=== PATIENT | female | born 1955 | race Caucasian/White ===

== ENCOUNTER → 2017-01-07 | Outpatient (CLI) | payer MEDICARE ==
[~2017-01-07] MED LIST: REGADENOSON 0.4 MG/5 ML SYRINGE IV ONE
--- NOTE | 2017-01-07 13:16 | EST ---
DATE OF SERVICE: 01/07/2017 AGE: 61Y SEX: F HT: 62" WT: 140 lbs. Protocol Braden: Other: Lexiscan Cardiolite Stage: Dur. of Exercise: *Heart Rate Blood Pressure *Rest: 72 Rest: 124/59 * *Max. Achieved: 103 Maximum BP: 124/59 85% PMHR: 136 100% PMHR: 160 *METS: INDICATIONS: Chest pain. MEDICATIONS: Cardizem, levothyroxine, [place], albuterol, Symbicort, Spiriva, Vitamin B. Baseline EKG revealed a normal sinus rhythm without significant ST-T changes. There is nonspecific T wave ST-T abnormality involving the inferior leads. With Lexiscan administration, heart rate changed from 72 to 103 beats per minute and blood pressure was about 124/90 without appreciable change. The patient did not have any significant symptoms. By EKG criteria, this is an unremarkable Lexiscan stress test with minor resting EKG changes. The nuclear scan results, which are more pertinent, will be reported by the radiologist.
--- NOTE | 2017-01-07 14:04 | NM ---
EXAMINATION TYPE: NM stress lexiscan cardiolite DATE OF EXAM: 01/07/2017 12:05 PM COMPARISON: NONE HISTORY: Chest pain TECHNIQUE: After the intravenous administration of 9.9 mCi Tc 99m Sestamibi - Cardiolite resting SPE CT images acquired 45 minutes post injection. The patient received 0.4mg Lexiscan, 27.3 mCi Tc 99m Sestamibi - Stress images obtained [address] injection FINDINGS: Review of stress and rest SPECT images demonstrates no distinct perfusion abnormality. Gated analysi s shows normal wall motion with an estimated left ventricular ejection fraction of 66 %. IMPRESSION: No scintigraphic evidence for reversible ischemia.
== END | disposition home or self-care (01) ==
LOC: RADNMMAIN 08:50
PROVIDERS: ATTEND Family Medicine
DX: R94.39 Abnormal result of other cardiovascular function study (principal); R07.9 Chest pain, unspecified
CPT/HCPCS: 93017; 78452; A9500; J2785

== ENCOUNTER → 2017-02-07 | Outpatient (CLI) | payer MEDICARE ==
--- NOTE | 2017-02-07 14:31 | MM ---
Reason for exam: follow-up at short interval from prior study. Last mammogram was performed 7 months ago. History: Patient is postmenopausal. Family history of breast cancer in sister at age 50. Benign MG stereo VAD BX LT of the left breast, August 06, 2016. Cyst aspiration of the right breast. 3 excisional biopsies of the right breast. Took hormonal contraceptives for 20 years beginning at age 21. Took estrogen for 3 years beginning at age 36. Physical Findings: Nurse did not find any significant physical abnormalities on exam. MG 3D Diag Mammo W/Cad LT CC and MLO view(s) were taken of the left breast. Prior study comparison: July 23, 2016, bilateral MG 3d diag mammo w/cad [facility]. June 30, 2015, bilateral MG screening mammo w CAD. March 29, 2014, bilateral MG screening mammo w CAD. The breast tissue is heterogeneously dense. This may lower the sensitivity of mammography. Finding: There are typically benign round, grouped/clustered calcifications in the middle position of the left breast. Previous mammotome biopsy in the left breast. There is no discrete abnormality. These results were verbally communicated with the patient and result sheet given to the patient on 02/07/17. ASSESSMENT: Benign, BI-RAD 2 RECOMMENDATION: Routine screening mammogram of both breasts in 6 months. Back on schedule for July 2016.
== END | disposition home or self-care (01) ==
LOC: RADMAMWWP 13:41
PROVIDERS: ATTEND Family Medicine
DX: R92.8 Other abnormal and inconclusive findings on diagnostic imaging of breast (principal)
CPT/HCPCS: G0206; G0279

== ENCOUNTER 2017-05-08 08:20 | Day surgery (SDC) | payer MEDICARE ==
[2017-05-03 12:18] VITALS: BMI 26.3
[~2017-05-08 08:20] MED LIST changes: +LACTATED RINGERS 1,000 ML IV SCH; -REGADENOSON 0.4 MG/5 ML SYRINGE IV ONE
[2017-05-08 08:35] VITALS: RESP 16; TEMP 97.7
[2017-05-08] MEDS ORDERED: LIDOCAINE 1% 20 ML VIAL (10MG/ML) FOR IV START INTRADERMA ONE (08:41)
[2017-05-08] MEDS ORDERED: PROPOFOL 10 MG/ML 20 ML VIAL IV ONE (09:17)
[2017-05-08] MEDS ORDERED: LIDOCAINE 1% INJ 10MG/ML (20 ML MDV) ONE (09:17)
--- NOTE | 2017-05-08 09:56 | P.PCN ---
Date of Procedure: 05/08/17 (y) Preoperative Diagnosis: Postoperative Diagnosis: Procedure(s) Performed: Brief history: Patient is a pleasant 61-year-old white female scheduled for an elective upper endoscopy as well as colonoscopy as a part of evaluation of long-standing history of GERD and history of colon polyps. Procedure performed: Esophagogastroduodenoscopy with biopsy Colonoscopy with snare polypectomy Preoperative diagnosis: Anesthesia: MAC Procedure: After informed consent was obtained from the patient was brought into the endoscopy unit and IV sedation was administered by anesthesia under continuous monitoring. Initially upper endoscopy was done. The Olympus GF 160 video endoscope was inserted inserted into the mouth and esophagus intubated without any difficulty and was gradually advanced into the stomach and duodenum and carefully examined. The bulb and second part of the duodenum appeared normal. The scope was then withdrawn into the stomach adequately insufflated with air and upon careful examination the antrum and body, cardia and fundus appeared normal. The scope was then withdrawn into the esophagus. The GE junction was located at 40 cm to the incisors. It appeared regular with no erythema erosions or ulcerations. Rest of the esophagus appeared normal. Patient tolerated the procedure well. At this time the patient continued to remain sedation. Initial digital rectal examination was normal. Olympus CF 160 video colonoscope was then inserted into the rectum and gradually advanced to the cecum without any difficulty. Careful examination was performed as the scope was gradually being withdrawn. The prep was excellent. The cecum, ascending colon, transverse colon, descending colon, appeared normal. In the sigmoid colon there were 5 polyps measuring between 5-6 mm in size all of which were removed by snare polypectomy. There are scattered sigmoid diverticula seen. The rest of the sigmoid colon and rectum appeared normal. Retroflexion was performed in the rectum and no lesions were noted. Patient tolerated the procedure well. Impression: 1. Upper endoscopy revealed mild antral gastritis and a grade B reflux esophagitis 2. Colonoscopy revealed 5 polyps in the sigmoid colon measuring between 5-6 mm in size all of which were removed by snare polypectomy and scattered sigmoid diverticulosis Recommendations: Findings of this examination were discussed with the patient as well as her family. She was advised to follow with the biopsy results. She can have a repeat colonoscopy in 5 years. In regards to her GERD symptoms she will continue with Prilosec 20 mg daily and follow antireflux measures. Implants: Indications for Procedure: Operative Findings: Description of Procedure:
[2017-05-08 10:22] VITALS: BP 97/61; PULSE 71
== END 2017-05-08 10:47 | disposition home or self-care (01) ==
LOC: ORWHC2ENDO 08:20
PROVIDERS: ATTEND Internal Medicine Gastroenterology
DX: Z12.11 Encounter for screening for malignant neoplasm of colon (principal); K29.50 Unspecified chronic gastritis without bleeding; D12.5 Benign neoplasm of sigmoid colon; I25.10 Atherosclerotic heart disease of native coronary artery without angina pectoris; I10 Essential (primary) hypertension; F17.200 Nicotine dependence, unspecified, uncomplicated; E78.5 Hyperlipidemia, unspecified; Z86.718 Personal history of other venous thrombosis and embolism; E07.9 Disorder of thyroid, unspecified; Z79.891 Long term (current) use of opiate analgesic; Z79.51 Long term (current) use of inhaled steroids; Z79.899 Other long term (current) drug therapy; Z88.0 Allergy status to penicillin; Z88.2 Allergy status to sulfonamides
CPT/HCPCS: 88305; 88342; 45385; 43239; J2001; J2704

== ENCOUNTER → 2017-07-19 | Outpatient (CLI) | payer MEDICARE ==
[2017-07-19 12:46] LABS: Basophils # (A) 0.1 k/uL (0-0.2); Basophils % (A) 1 %; CH 32.3; CHCM 31.7; Eosinophils # (A) 0.3 k/uL (0-0.7); Eosinophils % (A) 4 %; HCT 44.4 % (34.0-46.0); HDW 2.21; HGB 14.1 gm/dL (11.4-16.0); Luc # (Auto) 0.19; Luc % (Auto) 2; Lymphocytes # (A) 3.9 k/uL (1.0-4.8); Lymphocytes % (A) 47 %; MCH 32.5 pg (25.0-35.0); MCHC 31.8 g/dL (31.0-37.0); MCV 102.4 fL (80.0-100.0); Macrocytosis Slight; Mean Platelet Volume 6.9; Monocytes # (A) 0.6 k/uL (0-1.0); Monocytes % (A) 8 %; Neutrophils # (A) 3.2 k/uL (1.3-7.7); Neutrophils % (A) 39 %; RBC 4.34 m/uL (3.80-5.40); RDW 14.9 % (11.5-15.5); WBC 8.2 k/uL (3.8-10.6); WBC (Perox) 7.92
[2017-07-19 13:13] LABS: ALT 42 U/L (9-52); AST 23 U/L (14-36); Alkaline Phosphatase 93 U/L (38-126); Anion Gap 5 mmol/L; Blood Urea Nitrogen 12 mg/dL (7-17); Calcium 9.7 mg/dL (8.4-10.2); Carbon Dioxide 29 mmol/L (22-30); Chloride 107 mmol/L (98-107); Cholesterol 159 mg/dL (<200); Glucose 95 mg/dL (74-99); HDL Cholesterol 57 mg/dL (40-60); Non-African American GFR(MDRD) >60 (>60 ml/min/1.73 sqM); Sodium 141 mmol/L (137-145); Total Bilirubin 0.4 mg/dL (0.2-1.3); Total Protein 6.5 g/dL (6.3-8.2)
[2017-07-19 13:19] LABS: Potassium 4.7 mmol/L (3.5-5.1)
== END | disposition home or self-care (01) ==
LOC: LABWHC1 12:09
PROVIDERS: ATTEND Nurse Practitioner Adult Health
DX: Z00.00 Encounter for general adult medical examination without abnormal findings (principal)
CPT/HCPCS: 36415; 80053; 80061; 85025

== ENCOUNTER → 2017-11-05 | Outpatient (CLI) | payer MEDICARE ==
--- NOTE | 2017-11-05 21:02 | CT ---
EXAMINATION TYPE: CT abdomen pelvis wo con DATE OF EXAM: 11/05/2017 COMPARISON: 08/05/2014 HISTORY: 61-year-old female Patient complains of LUQ pain, RLQ pain, and increased frequency of urina tion. CT DLP: 279.9 mGycm. Automated exposure control for dose reduction was used. TECHNIQUE: Contiguous axial scanning of the abdomen and pelvis without IV contrast. Coronal and sagit tobias reconstructions performed. FINDINGS: Heart is normal size without pericardial effusion. Lung bases clear without pleural effusion. The cyst in the posterior right liver lobe is enlarged from 2013 now measuring 1.8 cm versus 1 cm, pr eviously. Otherwise, noncontrast appearance of the liver, adrenal glands, kidneys, spleen, and pancre as show no gross abnormality. Cholecystectomy clips are present. Prominent ingested debris within the stomach. Mild atherosclerotic calcifications within the abdominal aorta and iliac arteries. Focal fusiform dil atation of the infrarenal segment at 1.9 cm without significant ectasia or aneurysm. No dilated small bowel, free fluid, or free air. No mesenteric or retroperitoneal lymphadenopathy. Normal appendix. Moderate stool burden with mild sigmoid diverticulosis but no pericolonic inflammato ry change. Bladder partially distended. Uterus surgically absent. Neither ovary clearly seen and could be obscur ed by adjacent bowel loops or also surgically absent. No abnormal fluid collection in the pelvis. A p rominent 8 mm left external iliac chain lymph node is unchanged, likely chronic postinflammatory. Oth erwise, no pelvic lymphadenopathy or abnormal fluid collection in the pelvis. Bones: There is a transitional lumbosacral segment is noted as a lumbarized S1. Degenerative disc dis ease above and L5-S1. No osseous destructive process. IMPRESSION: 1. No acute inflammatory process identified in the abdomen or pelvis to explain the patient's sympto ms. 2. Right hepatic cyst slightly enlarged in the interval (1.8 cm now versus 1 cm, previously). 3. Mild sigmoid diverticulosis. 4. Moderate stool burden.
== END | disposition home or self-care (01) ==
LOC: RADCTMAIN 16:55
PROVIDERS: ATTEND Nurse Practitioner Adult Health
DX: K57.30 Diverticulosis of large intestine without perforation or abscess without bleeding (principal); K76.89 Other specified diseases of liver; R35.0 Frequency of micturition
CPT/HCPCS: 74176

== ENCOUNTER → 2018-01-24 | Outpatient (CLI) | payer MEDICARE ==
[2018-01-24 08:24] LABS: ALT 31 U/L (9-52); AST 23 U/L (14-36); Alkaline Phosphatase 86 U/L (38-126); Anion Gap 11 mmol/L; Blood Urea Nitrogen 15 mg/dL (7-17); Calcium 9.7 mg/dL (8.4-10.2); Carbon Dioxide 27 mmol/L (22-30); Chloride 108 mmol/L (98-107); Cholesterol 163 mg/dL (<200); Creatine Kinase 62 U/L (30-135); Glucose 103 mg/dL (74-99); HDL Cholesterol 50 mg/dL (40-60); LDL Cholesterol,Calculated 93 mg/dL (0-99); Potassium 4.1 mmol/L (3.5-5.1); Sodium 146 mmol/L (137-145); Total Bilirubin 0.4 mg/dL (0.2-1.3); Total Protein 6.7 g/dL (6.3-8.2); Triglycerides 101 mg/dL (<150)
[2018-01-24 10:34] LABS: T4, Free (Free Thyroxine) 1.52 ng/dL (0.78-2.19)
== END | disposition home or self-care (01) ==
LOC: LABWHC1 07:55
PROVIDERS: ATTEND Nurse Practitioner Adult Health
DX: E03.9 Hypothyroidism, unspecified (principal); E78.5 Hyperlipidemia, unspecified
CPT/HCPCS: 36415; 80053; 80061; 82550; 84439; 84443

== ENCOUNTER → 2018-01-29 | Outpatient (CLI) | payer MEDICARE ==
--- NOTE | 2018-01-30 13:40 | MM ---
Reason for exam: screening (asymptomatic). Last mammogram was performed 1 year ago. History: Patient is postmenopausal. Family history of breast cancer in sister at age 50. Benign MG stereo VAD BX LT of the left breast, August 06, 2016. Cyst aspiration of the right breast. 3 excisional biopsies of the right breast. Took hormonal contraceptives for 20 years beginning at age 21. Took estrogen for 3 years beginning at age 36. Physical Findings: A clinical breast exam by your physician is recommended on an annual basis and results should be correlated with mammographic findings. MG 3D Screening Mammo W/Cad Bilateral CC and MLO view(s) were taken. Prior study comparison: February 07, 2017, left breast MG 3d diag mammo w/cad LT. July 23, 2016, bilateral MG 3d diag mammo w/cad [facility]. The breast tissue is heterogeneously dense. This may lower the sensitivity of mammography. Benign appearing bilateral calcifications. Post surgical change bilaterally. Left breast biopsy marker. ASSESSMENT: Benign, BI-RAD 2 RECOMMENDATION: Routine screening mammogram of both breasts in 1 year.
== END | disposition home or self-care (01) ==
LOC: RADMAMWWP 13:20
PROVIDERS: ATTEND Family Medicine
DX: Z12.31 Encounter for screening mammogram for malignant neoplasm of breast (principal)
CPT/HCPCS: 77063; 77067

== ENCOUNTER → 2018-02-04 | Outpatient (CLI) | payer MEDICARE ==
--- NOTE | 2018-02-05 07:27 | US ---
EXAMINATION TYPE: US thyroid st tissue head/neck DATE OF EXAM: 02/04/2018 COMPARISON: NONE CLINICAL HISTORY: E03.9 HYPOTHYROIDISM. GLAND SIZE: Right Lobe: 4.6 x 3.0 x 1.3 cm Overall Parenchyma: heterogenous Left Lobe: 4.2 x 1.3 x 1.0 cm Overall Parenchyma: heterogeneous Isthmus Thickness: 0.2 cm NODULES RIGHT: # of nodules measured on right: 0 Tiny 3 mm cystic area lower pole. LEFT: # of nodules measured on left: 0 3 mm calcification noted lower pole ISTHMUS: # of nodules measured in the isthmus: 0 Bilateral neck scanned, no evidence of lymphadenopathy. IMPRESSION: Nonspecific thyroid nodularity is discussed.
== END | disposition home or self-care (01) ==
LOC: RADUSWWP 15:39
PROVIDERS: ATTEND Family Medicine
DX: E03.9 Hypothyroidism, unspecified (principal)
CPT/HCPCS: 76536

== ENCOUNTER → 2018-02-19 | Outpatient (CLI) | payer MEDICARE ==
--- NOTE | 2018-02-20 09:17 | CTL ---
EXAMINATION TYPE: CT Low Dose Lung DATE OF EXAM ORDERED: 02/19/2018 HISTORY: . Lung cancer screening CT DLP: [address] CTDI: 2.14 mGy Automated exposure control for dose reduction was used. SCREENING VISIT: Subsequent COMPARISON: 08/15/2017 TECHNIQUE: Low dose computed tomography scan was performed through the chest at 1 mm thick sections a nd reconstructed images in the coronal plane at [address] DIAGNOSTIC QUALITY: Satisfactory FINDINGS: LUNG NODULES: Present, detailed below: Series 5 image 72 there is a peripheral 0.3 cm stable density left anterior upper lung field. Series 5 image 139 there is a peripheral pleural-based density measuring 0.5 cm. This is slightly lar jaya than the comparison of 0.4 cm but within measurement error. Short-term follow-up is recommended. Series 5 image 163 there is a nodular density within the anterior right middle lobe which currently m easures 0.9 x 0.5 cm slightly larger than comparison. PET/CT of this area could be performed. Series 5 image 176 there is a stable linear opacity in the periphery of the right lower lobe measurin g 0.3 cm transverse dimension. LUNGS: COPD: Severity: None Fibrosis: Severity: None Lymph nodes: No enlarged Other findings: None RIGHT PLEURAL SPACE: Effusion: None Calcification: None Thickening: None Pneumothorax: None LEFT PLEURAL SPACE: Effusion: None Calcification: None Thickening: None Pneumothorax: None HEART: Heart Size: Normal Coronary calcification: Mild Pericardial effusion: None OTHER FINDINGS: Upper abdomen: There is a 2.4 cm posterior right upper lobe liver cyst measuring 3 Hounsfield units. Bony thorax: Normal Supraclavicular region: Normal. Normal-appearing 1.0 cm lymph node is in the right axillary region. Other: Ascending thoracic aorta at the main pulmonary artery is 2.9 cm. Main pulmonary artery at the bifurcation is 2.3 cm. IMPRESSION: Subtly enlarging right middle lobe nodule FOLLOW UP CT CHEST RECOMMENDATION: PET CT can be performed. CT LUNG RAD: Lung-Rad 4A Suspicious
== END | disposition home or self-care (01) ==
LOC: RADCTMAIN 16:31
PROVIDERS: ATTEND Family Medicine
DX: Z12.2 Encounter for screening for malignant neoplasm of respiratory organs (principal); R91.8 Other nonspecific abnormal finding of lung field; Z87.891 Personal history of nicotine dependence

== ENCOUNTER → 2018-03-15 | Outpatient (CLI) | payer MEDICARE ==
--- NOTE | 2018-03-15 13:09 | PE ---
EXAMINATION TYPE: PET CT fusion skull to thigh DATE OF EXAM: 03/15/2018 COMPARISON: Low dose lung screening CT February 19, 2018 and older chest CTs back through 2010. CT abdome n and pelvis November 05, 2017 and older study August 05, 2014 HISTORY: Abnormal CT, solitary pulmonary nodule TECHNIQUE: Following the intravenous administration of 13.4 mCi of F-18 FDG, whole body images are p erformed from the skull base to the midthigh. Images are reviewed on the computer in the coronal, ax ial, and sagittal planes. Reconstructed rotating images are created on independent workstation and r eviewed on the computer. A noncontrast CT is performed in conjunction with the PET scan. SCAN: Initial Scan FINDINGS: SKULL BASE AND NECK: No areas of suspicious hypermetabolic uptake are present. There is mild increas ed uptake right lower neck muscle adjacent to thyroid gland near image 48 correlate for muscular infl ammation. CHEST, MEDIASTINUM, AND HILAR REGION: There is redemonstration of largest nodule right middle lobe an teriorly axial image 95 measuring 6 x 4 mm current study without abnormal hypermetabolic uptake. Line ar scarring lateral to this is redemonstrated. This nodule has been present in retrospect back to May study without significant change in size. Finding is thus postinflammatory. Some isis on artifact degradation is present. Scattered tiny nodules on low-dose lung screening CT are less wel l seen on current study. There are no suspicious hypermetabolic greater than 5 mm nodules identified. No suspicious areas of hypermetabolic uptake are seen. ABDOMEN AND PELVIS: Normal excretion in kidneys and bladder is present. There is no suspicious hyperm etabolic uptake on current study. OSSEOUS STRUCTURES: No suspicious hypermetabolic uptake is present. OTHER CT: Some coronary artery calcification RCA distribution is seen which is noted marker for coron thor artery disease. There is stable 1.8 cm rounded low dense lesion posterior right hepatic lobe axial image 124 favoring simple cyst. Cholecystectomy clips are redemonstrated. There is mild calcified plaque of the abdominal aorta extending into pelvic branch vessels. There are some diverticula in the colon most prominent in the sigmoid colon. There is no CT evidence for acute diverticulitis. There is disc space narrowing at lumbosacral junction with vacuum disc phenomenon. IMPRESSION: No suspicious hypermetabolic uptake is seen to suggest malignancy. Recommend annual low-d ose lung screening CT in January 2019.
== END | disposition home or self-care (01) ==
LOC: RADPETMAIN 07:55
PROVIDERS: ATTEND Nurse Practitioner Adult Health
DX: R91.8 Other nonspecific abnormal finding of lung field (principal)
CPT/HCPCS: 78815; A9552

== ENCOUNTER → 2018-04-28 | Outpatient (CLI) | payer MEDICARE ==
--- NOTE | 2018-04-28 16:17 | CT ---
EXAMINATION TYPE: CT abdomen pelvis wo con DATE OF EXAM: 04/28/2018 COMPARISON: PET/CT 03/15/2018 HISTORY: 62-year-old female Bilateral inguinal pain x5 days. CT DLP: 312.8 mGycm. Automated exposure control for dose reduction was used. TECHNIQUE: Contiguous axial scanning of the abdomen and pelvis without IV contrast. Coronal and sagit tobias reconstructions performed. FINDINGS: Heart is normal size without pericardial effusion. Visualized lung bases clear without pleural effusi on. Stable 2.1 cm round hypodense lesion posterior right liver lobe likely cyst. We note lack of metaboli c activity on the patient's PET/CT. Additional subcentimeter hypodensity left liver lobe is too small for accurate CT characterization, likely additional cysts. Cholecystectomy clips are present. Noncontrast appearance of the adrenal glands, kidneys, spleen, and pancreas show no gross abnormality . No dilated small bowel, free fluid, or free air. Mild atherosclerotic calcifications throughout the a bdominal aorta and iliac arteries without aneurysm. No mesenteric or retroperitoneal lymphadenopathy identified For noncontrast technique. Normal appendix. Mild to moderate stool burden. Sigmoid diverticulosis. No pericolonic inflammatory c hange. Bladder not distended. No abnormal fluid collection in the pelvis or pelvic lymphadenopathy seen. No inguinal or femoral canal hernia is identified. Uterus not clearly identified, either obscured due to clustered bowel or surgically absent. The latter is favored. No abnormal fluid collection in the pel vis or pelvic lymphadenopathy. Bones: Mild degenerative changes at the hips degenerative disc disease L4-L5 with sacralized L5 segme nt. IMPRESSION: Sigmoid diverticulosis. No evidence for acute diverticulitis or other acute inflammatory process in t he abdomen or pelvis to explain the patient's symptoms.
== END | disposition home or self-care (01) ==
LOC: RADCTMAIN 15:44
PROVIDERS: ATTEND Nurse Practitioner Adult Health
DX: K57.30 Diverticulosis of large intestine without perforation or abscess without bleeding (principal)
CPT/HCPCS: 74176

== ENCOUNTER → 2018-07-26 | Outpatient (CLI) | payer MEDICARE ==
[2018-07-26 12:03] LABS: Basophils # (A) 0.1 k/uL (0-0.2); Basophils % (A) 1 %; Eosinophils # (A) 0.3 k/uL (0-0.7); Eosinophils % (A) 2 %; HCT 44.6 % (34.0-46.0); HGB 14.2 gm/dL (11.4-16.0); Lymphocytes # (A) 3.7 k/uL (1.0-4.8); Lymphocytes % (A) 34 %; MCH 31.7 pg (25.0-35.0); MCHC 31.8 g/dL (31.0-37.0); MCV 99.4 fL (80.0-100.0); Mean Platelet Volume 7.1; Monocytes # (A) 0.6 k/uL (0-1.0); Monocytes % (A) 5 %; Neutrophils # (A) 5.9 k/uL (1.3-7.7); Neutrophils % (A) 55 %; Platelet Count 413 k/uL (150-450); RBC 4.49 m/uL (3.80-5.40); RDW 13.5 % (11.5-15.5); WBC 10.7 k/uL (3.8-10.6)
[2018-07-26 17:01] LABS: Albumin 4.4 g/dL (3.80-4.90); Albumin/Globulin Ratio 2.1 (1.20-2.10); Anion Gap 5.9 mmol/L (4.00-12.00); Calcium 9.7 mg/dL (8.7-10.3); Carbon Dioxide 28.1 mmol/L (21.6-31.8); Globulin 2.1 g/dL (2.1-3.7); Potassium 4.5 mmol/L (3.5-5.5); Total Bilirubin 0.4 mg/dL (0.2-1.2); Total Protein 6.5 g/dL (6.2-8.2)
[2018-07-26 17:09] LABS: T4, Free (Free Thyroxine) 1.3 ng/dL (0.80-1.80)
== END ==
LOC: LABWHC1 10:44
PROVIDERS: ATTEND Nurse Practitioner Adult Health
DX: I10 Essential (primary) hypertension (principal); E03.9 Hypothyroidism, unspecified; E78.5 Hyperlipidemia, unspecified
CPT/HCPCS: 36415; 80053; 80061; 82550; 84439; 84443; 85025

== ENCOUNTER → 2019-03-06 | Outpatient (CLI) | payer MEDICARE ==
[2019-03-06 08:27] LABS: Basophils # (A) 0.1 k/uL (0-0.2); Basophils % (A) 1 %; Eosinophils # (A) 0.2 k/uL (0-0.7); Eosinophils % (A) 2 %; HCT 43.7 % (34.0-46.0); HGB 13.5 gm/dL (11.4-16.0); Lymphocytes # (A) 2.9 k/uL (1.0-4.8); Lymphocytes % (A) 34 %; MCH 29.8 pg (25.0-35.0); MCV 96.4 fL (80.0-100.0); Mean Platelet Volume 7.3; Monocytes # (A) 0.6 k/uL (0-1.0); Monocytes % (A) 7 %; Neutrophils # (A) 4.7 k/uL (1.3-7.7); Neutrophils % (A) 54 %; Platelet Count 361 k/uL (150-450); RBC 4.54 m/uL (3.80-5.40); RDW 14.2 % (11.5-15.5); WBC 8.7 k/uL (3.8-10.6)
[2019-03-06 15:38] LABS: LDL Cholesterol,Calculated 84.2 mg/dL (0.0-131.0); VLDL Calculation 14.8 mg/dL (5.00-40.00)
[2019-03-06 15:39] LABS: African American GFR (CKD) 107.6 (60.0-200.0); Albumin 4.2 g/dL (3.80-4.90); Albumin/Globulin Ratio 2.1 (1.60-3.17); Anion Gap 2.1 mmol/L (4.00-12.00); BUN/Creat Ratio 24.29 Ratio (12.00-20.00); Calcium 9.5 mg/dL (8.7-10.3); Carbon Dioxide 27.9 mmol/L (21.6-31.8); Potassium 4.6 mmol/L (3.5-5.5); Total Bilirubin 0.2 mg/dL (0.2-1.2); Total Protein 6.2 g/dL (6.2-8.2)
[2019-03-06 15:45] LABS: T4, Free (Free Thyroxine) 1.5 ng/dL (0.80-1.80)
== END ==
LOC: LABWHC1 07:36
PROVIDERS: ATTEND Nurse Practitioner Adult Health
DX: E03.9 Hypothyroidism, unspecified (principal); E78.5 Hyperlipidemia, unspecified
CPT/HCPCS: 36415; 80053; 80061; 82550; 84439; 84443; 85025

== ENCOUNTER → 2019-03-13 | Outpatient (CLI) | payer MEDICARE ==
--- NOTE | 2019-03-13 15:07 | CT ---
EXAMINATION TYPE: CT chest wo con DATE OF EXAM: 03/13/2019 COMPARISON: Lung CT February 19, [address] March 15, 2018. And older CTs HISTORY: f/u nodules CT DLP: 523 mGycm. Automated Exposure Control for Dose Reduction was Utilized. TECHNIQUE: CT scan of the thorax is performed without IV contrast. FINDINGS: LUNGS: Scattered small nodules redemonstrated. For reference one of larger lesions is a 5 x 4 mm grou ndglass nodule anterior right mid lung axial image 33. For reference is a stable 5 x 4 mm subpleural nodule superior right lower lobe axial image 23. No definitive new greater than 4 mm nodules or jonathan s. MEDIASTINUM: Lack of IV contrast is noted to limit evaluation for mediastinal and especially hilar ad enopathy. There are no definitive greater than 1 cm hilar or mediastinal lymph nodes. No cardiomega ly or pericardial effusion is seen. OTHER: Cholecystectomy clips are present. IMPRESSION: Stable scattered nodules presumed postinflammatory. No new or enlarging nodules evident.
== END | disposition home or self-care (01) ==
LOC: RADCTMAIN 14:31
PROVIDERS: ATTEND Family Medicine
DX: R91.8 Other nonspecific abnormal finding of lung field (principal)
CPT/HCPCS: 71250

== ENCOUNTER → 2019-03-24 | Outpatient (CLI) | payer MEDICARE ==
--- NOTE | 2019-03-26 08:53 | MM ---
Reason for exam: screening (asymptomatic). Last mammogram was performed 1 year and 2 months ago. History: Patient is postmenopausal. Family history of breast cancer in sister at age 50. Benign MG stereo VAD BX LT of the left breast, August 06, 2016. Cyst aspiration of the right breast. 3 excisional biopsies of the right breast. Took hormonal contraceptives for 20 years beginning at age 21. Took estrogen for 3 years beginning at age 36. Physical Findings: A clinical breast exam by your physician is recommended on an annual basis and results should be correlated with mammographic findings. MG 3D Screening Mammo W/Cad Bilateral CC and MLO view(s) were taken. Prior study comparison: January 29, 2018, bilateral MG 3d screening mammo w/cad. February 07, 2017, left breast MG 3d diag mammo w/cad LT. The breast tissue is heterogeneously dense. This may lower the sensitivity of mammography. Stable benign calcifications. There is no discrete abnormality. No significant changes when compared with prior studies. ASSESSMENT: Benign, BI-RAD 2 RECOMMENDATION: Routine screening mammogram of both breasts in 1 year.
== END | disposition home or self-care (01) ==
LOC: RADMAMWWP 14:36
PROVIDERS: ATTEND Family Medicine
DX: Z12.31 Encounter for screening mammogram for malignant neoplasm of breast (principal)
CPT/HCPCS: 77063; 77067

== ENCOUNTER → 2019-08-31 | Outpatient (CLI) | payer MEDICARE ==
[2019-08-31 20:12] LABS: T4, Free (Free Thyroxine) 1.5 ng/dL (0.80-1.80)
[2019-09-01 14:53] LABS: Estrogens Total 109 pg/mL
== END | disposition home or self-care (01) ==
LOC: LABWHC1 13:12
PROVIDERS: ATTEND Family Medicine
DX: E03.9 Hypothyroidism, unspecified (principal); E89.41 Symptomatic postprocedural ovarian failure
CPT/HCPCS: 36415; 82040; 82672; 84144; 84270; 84403; 84439; 84443

== ENCOUNTER → 2020-03-14 | Outpatient (CLI) | payer MEDICARE ==
--- NOTE | 2020-03-14 15:18 | CT ---
EXAMINATION TYPE: CT chest wo con DATE OF EXAM: 03/14/2020 COMPARISON: CT chest 03/13/2019 HISTORY: Solitary lung nodule. CT DLP: 195.7 mGycm. Automated Exposure Control for Dose Reduction was Utilized. TECHNIQUE: CT scan of the thorax is performed without IV contrast. FINDINGS: Lack of intravenous contrast could compromise sensitivity. LUNGS: The lungs are remarkable for emphysematous change as on prior. No suspicious lung nodule is id entified. There is no pleural effusion or pneumothorax seen. The tracheobronchial tree is patent. MEDIASTINUM: Lack of IV contrast is noted to limit evaluation for mediastinal and especially hilar ad enopathy. There are no definitive greater than 1 cm hilar or mediastinal lymph nodes. No cardiomega ly or pericardial effusion is seen. There are coronary artery calcifications present. OTHER: Low dense foci within the liver are stable and likely represent cysts. Patient is post cholecy stectomy. IMPRESSION: Benign chest CT. Emphysema.
== END | disposition home or self-care (01) ==
LOC: RADCTMAIN 14:17
PROVIDERS: ATTEND Family Medicine
DX: J43.9 Emphysema, unspecified (principal)
CPT/HCPCS: 71250

== ENCOUNTER → 2020-08-19 | Outpatient (CLI) | payer MEDICARE | END | disposition home or self-care (01) | LOC: RADUSWWP 11:56 | PROVIDERS: ATTEND Family Medicine | DX: I73.9 Peripheral vascular disease, unspecified (principal) | CPT/HCPCS: 93922 ==

== ENCOUNTER → 2020-11-25 | Outpatient (CLI) | payer MEDICARE | END | disposition home or self-care (01) | LOC: RADMAMWWP 09:53 | PROVIDERS: ATTEND Family Medicine | DX: Z12.31 Encounter for screening mammogram for malignant neoplasm of breast (principal) | CPT/HCPCS: 77063; 77067 ==

== ENCOUNTER → 2021-02-27 | Outpatient (CLI) | payer MEDICARE ==
--- NOTE | 2021-02-27 16:19 | US ---
EXAMINATION TYPE: US thyroid st tissue head/neck DATE OF EXAM: 02/27/2021 COMPARISON: 02/04/2018 CLINICAL HISTORY: E04.1 SINGLE THYROID NODULE. GLAND SIZE: Right Lobe: 4.3 x 1.4 x 1.2 cm Overall Parenchyma: heterogenous Left Lobe: 3.4 x 1.3 x 1.0 cm Overall Parenchyma: heterogeneous Isthmus Thickness: 0.1 cm NODULES RIGHT: # of nodules measured on right: 0 LEFT: # of nodules measured on left: 1 1. 0.3 X 0.2 x 0.3 cm, echogenic calcified, nodule, which is wider than tall, with smooth margins. Prior size: no previous ISTHMUS: # of nodules measured in the isthmus: 0 Bilateral neck scanned, no evidence of lymphadenopathy. IMPRESSION: 1. No right thyroid nodules. 2. Echogenic calcified nodule measuring 3 mm in the left lateral thyroid lobe. 3. The thyroid parenchyma is mildly heterogeneous diffusely. 2017 ACR TI-RADS LEVEL: 2 *Highest TI-RADS level nodule reported
== END | disposition home or self-care (01) ==
LOC: RADUSWWP 12:19
PROVIDERS: ATTEND Family Medicine
DX: E04.1 Nontoxic single thyroid nodule (principal)
CPT/HCPCS: 76536

== ENCOUNTER → 2021-06-05 | Outpatient (CLI) | payer MEDICARE ==
--- NOTE | 2021-06-05 16:20 | CT ---
EXAMINATION TYPE: CT chest wo con DATE OF EXAM: 06/05/2021 COMPARISON: Most recent chest CT March 14, 2020 and older studies HISTORY: f/u nodules CT DLP: 254.3 mGycm. Automated Exposure Control for Dose Reduction was Utilized. TECHNIQUE: CT scan of the thorax is performed without IV contrast. FINDINGS: LUNGS: Scattered small nodules redemonstrated. For reference one of larger lesions is a 5 x 4 mm grou ndglass nodule anterior right mid lung axial image 33. This is stable in size but more faint from mos t recent older studies. This localizes along the minor fissure and is presumed benign. For reference is a stable 5 x 4 mm subpleural nodule superior right lower lobe axial image 27. This is unchanged fr om last 2 CTs. No definitive new greater than 4 mm nodules or masses. Mild bibasilar linear scarring redemonstrated. No pleural effusion or pneumothorax seen bilaterally. MEDIASTINUM: Lack of IV contrast is noted to limit evaluation for mediastinal and especially hilar ad enopathy. There are no definitive greater than 1 cm hilar or mediastinal lymph nodes. No cardiomega ly or pericardial effusion is seen. Coronary artery calcification is present. OTHER: Cholecystectomy clips are present. Stable 2.9 cm thin-walled cyst posterior right hepatic lobe axial image 51. Subcentimeter lesion left hepatic lobe anteriorly image 50 also stable. IMPRESSION: Stable scattered nodules presumed benign. No new or enlarging nodules evident. No further follow-up necessary as documented 2 year stability noted.
== END | disposition home or self-care (01) ==
LOC: RADCTMAIN 15:51
PROVIDERS: ATTEND Family Medicine
DX: R91.8 Other nonspecific abnormal finding of lung field (principal)
CPT/HCPCS: 71250

== ENCOUNTER → 2021-08-30 | Outpatient (CLI) | payer MEDICARE ==
[2021-08-30 18:16] LABS: Basophils # (A) 0.08 X 10*3/uL (0.00-0.10); Basophils % (A) 0.8 %; Eosinophils # (A) 0 X 10*3/uL (0.04-0.35); Eosinophils % (A) 0 %; HCT 42.3 % (37.2-46.3); HGB 13.8 g/dL (12.0-15.0); Lymphocytes # (A) 2.66 X 10*3/uL (0.90-5.00); Lymphocytes % (A) 27.8 %; MCH 32.2 pg (27.0-32.0); MCHC 32.6 g/dL (32.0-37.0); MCV 98.6 fL (80.0-97.0); Mean Platelet Volume 9.9 fL (9.5-12.2); Monocytes % (A) 7.3 %; Neutrophils % (A) 63.9 %; Platelet Count 389 X 10*3/uL (140-440); RBC 4.29 X 10*6/uL (4.10-5.20); RDW 14.5 % (11.5-14.5); WBC 9.56 X 10*3/uL (4.50-10.00)
[2021-08-30 19:19] LABS: % Iron Saturation 25.56 (12.00-45.00); ALT 16 U/L (8-44); AST 17 U/L (13-35); African American GFR (CKD) 93.7 (60.0-200.0); Albumin 4.4 g/dL (3.8-4.9); Albumin/Globulin Ratio 1.84 (1.60-3.17); Alkaline Phosphatase 88 U/L (41-126); BUN/Creat Ratio 16.11 Ratio (12.00-20.00); Blood Urea Nitrogen 12.5 mg/dL (9.0-27.0); Calcium 9.6 mg/dL (8.7-10.3); Carbon Dioxide 25.7 mmol/L (20.0-27.5); Chloride 105 mmol/L (96-109); Chol/HDL Ratio 3.06 Ratio; Creatine Kinase 69 U/L (26-186); Ferritin 88.1 ng/mL (10.0-291.0); Globulin 2.4 g/dL (1.6-3.3); Glucose 100 mg/dL (70-110); Iron 97 ug/dL (50-170); LDL Cholesterol,Calculated 93.9 mg/dL (0.0-131.0); Non-African American GFR(CKD) 80.8 (60.0-200.0); Potassium 4.9 mmol/L (3.5-5.5); Sodium 142 mmol/L (135-145); Total Iron Binding Capacity 378 ug/dL (228-460); Total Protein 6.8 g/dL (6.2-8.2); VLDL Calculation 15.78 mg/dL (5.00-40.00)
== END | disposition home or self-care (01) ==
LOC: LABWHC1 10:43
PROVIDERS: ATTEND Nurse Practitioner Adult Health
DX: E78.5 Hyperlipidemia, unspecified (principal); E03.9 Hypothyroidism, unspecified; R53.83 Other fatigue
CPT/HCPCS: 36415; 80053; 80061; 82550; 82607; 82728; 82746; 83036; 83540; 83550; 84439; 84443; 84481; 85025; 86376; 86800

== ENCOUNTER → 2022-01-12 | Outpatient (CLI) | payer MEDICARE ==
--- NOTE | 2022-01-16 12:52 | MM ---
Reason for Exam: Hx of breast augmentation, asymptomatic. Last mammogram was performed 1 year(s) and 2 month(s) ago. Patient History: Menarche at age 16. First Full-Term at age 20. Left ovary removed at age 42. Right ovary removed at age 42. Hysterectomy at age 42. Postmenopausal. Estrogen for 3 years from age 36 until age 39. Hormonal Contraceptives for 20 years from age 21 until age 41. Cyst Aspiration on the Right side. Excisional Biopsy on the Right side. Excisional Biopsy on the Right side. Excisional Biopsy on the Right side. 08/06/2016, Benign Core Biopsy on the left side. Sister had breast cancer, age 50. Film Views: Bilateral CC views were taken. Bilateral MLO views were taken. Prior Study Comparison: 01/29/2018 Bilateral Screening Mammogram, [facility]. 03/24/2019 Bilateral Screening Mammogram, [facility]. 11/25/2020 Bilateral Screening Mammogram, [facility]. Tissue Density: The breast tissue is heterogeneously dense. This may lower the sensitivity of mammography. Findings: Analyzed By CAD. No significant changes when compared with prior studies. Previous mammotome biopsy in the left breast. Chronic nodularity in the right anterior breast on CC view. Benign oil cyst calcifications bilaterally. Overall Assessment: Benign, BI-RAD 2 Management: Screening Mammogram of both breasts in 1 year.
== END | disposition home or self-care (01) ==
LOC: RADMAMWWP 10:17
PROVIDERS: ATTEND Family Medicine
DX: Z12.31 Encounter for screening mammogram for malignant neoplasm of breast (principal)
CPT/HCPCS: 77063; 77067

== ENCOUNTER → 2022-06-29 | Outpatient (CLI) | payer MEDICARE ==
--- NOTE | 2022-06-29 10:42 | CTL ---
EXAMINATION TYPE: CT Low Dose Lung DATE OF EXAM ORDERED: 06/29/2022 HISTORY: History of tobacco use. CT DLP: 76.[address] CTDI: 2.5 mGy Automated exposure control for dose reduction was used. SCREENING VISIT: Follow-up COMPARISON: 02/19/2018, PET/CT 03/15/2018, CT chest 06/05/2021. CT 02/19/2018 TECHNIQUE: Low dose computed tomography scan was performed through the chest at 1 mm thick sections a nd reconstructed images in multiple planes at 1 mm and [address] DIAGNOSTIC QUALITY: Satisfactory FINDINGS: LUNG NODULES: Right lower lobe posterior peripheral superior segment nodule now measuring 7 mm, similar to 8. Image 122 Right middle lobe intrafissural lymph node along the minor fissure. Left lower lobe peripheral 3 mm nodule, similar to 02/19/2018. Image 152 Left upper lobe opacified pulmonary nodule. LUNGS: COPD: Severity: Mild centrilobular emphysema changes. Fibrosis: Severity: None Lymph nodes: None Other findings: None RIGHT PLEURAL SPACE: Effusion: None Calcification: None Thickening: None Pneumothorax: None LEFT PLEURAL SPACE: Effusion: None Calcification: None Thickening: None Pneumothorax: None HEART: Heart Size: Normal Coronary Calcification: Mild coronary artery atherosclerosis. Pericardial Effusion: None OTHER FINDINGS: Upper abdomen: None Bony thorax: Mild multilevel disc degeneration changes seen throughout the spine. Supraclavicular region: None Other: Hepatic cyst. IMPRESSION: Stable pulmonary nodules dating back to at least 2018. CT LUNG RAD AND CT CHEST RECOMMENDATION: Lung-Rad 2 Benign Appearance or Behavior: No additional foll ow-up of these nodules as they have been stable since 2018. S Modifier (other clinically significant findings): None
== END | disposition home or self-care (01) ==
LOC: RADCTMAIN 09:45
PROVIDERS: ATTEND Family Medicine
DX: R91.8 Other nonspecific abnormal finding of lung field (principal); Z87.891 Personal history of nicotine dependence
CPT/HCPCS: 71271

== ENCOUNTER → 2022-11-30 | Outpatient (CLI) | payer MEDICARE ==
--- NOTE | 2022-11-30 22:57 | XR ---
EXAMINATION TYPE: XR chest 2V DATE OF EXAM: 11/30/2022 COMPARISON: Chest CT June 05, 2021 HISTORY: COPD. TECHNIQUE: Frontal and lateral views of the chest are obtained. FINDINGS: Mild to moderate underlying emphysematous changes are redemonstrated. There is no suspicio us focal air space opacity, pleural effusion, or pneumothorax seen. The cardiac silhouette size is s table and within normal limits. Partial visualization of anterior fusion plate in the cervical spine is noted.. IMPRESSION: Mild to moderate underlying emphysematous change without acute pulmonary process.
--- NOTE | 2022-11-30 22:59 | XR ---
EXAMINATION TYPE: XR lumbar spine 2 or 3V DATE OF EXAM: 11/30/2022 CLINICAL HISTORY: Low back pain for years. TECHNIQUE: Frontal and lateral images of the lumbar spine are obtained. COMPARISON: CT abdomen and pelvis 2017 FINDINGS: There are 5 lumbar type vertebral bodies redemonstrated. The lumbar spine shows stable an d satisfactory alignment . Vertebral body heights remain within normal limits. Mild to moderate disc space narrowing L3-L4 level. Mild disc space narrowing L5-S1 level. Mild overlying arteriovascular ca lcification. IMPRESSION: As above.
== END | disposition home or self-care (01) ==
LOC: RADXRMAIN 17:20
PROVIDERS: ATTEND Internal Medicine Hematology & Oncology
DX: J43.8 Other emphysema (principal); M51.27 Other intervertebral disc displacement, lumbosacral region; D72.820 Lymphocytosis (symptomatic); Z71.3 Dietary counseling and surveillance
CPT/HCPCS: 71046; 72100

== ENCOUNTER → 2023-01-14 | Outpatient (CLI) | payer MEDICARE ==
--- NOTE | 2023-01-15 08:21 | MM ---
Reason for Exam: Screening (asymptomatic). Last screening mammogram was performed 12 month(s) ago. Patient History: Menarche at age 16. First Full-Term at age 20. Left ovary removed at age 42. Right ovary removed at age 42. Hysterectomy at age 42. Postmenopausal. Estrogen for 3 years from age 36 until age 39. Hormonal Contraceptives for 20 years from age 21 until age 41. Cyst Aspiration on the Right side. Excisional Biopsy on the Right side. Excisional Biopsy on the Right side. Excisional Biopsy on the Right side. 08/06/2016, Benign Core Biopsy on the left side. Sister had breast cancer, age 50. Risk Values: Debbie 5 year model risk: 4.3%. NCI Lifetime model risk: 14.7%. Prior Study Comparison: 03/24/2019 Bilateral Screening Mammogram, [facility]. 11/25/2020 Bilateral Screening Mammogram, [facility]. 01/12/2022 Bilateral MG 3D screening mammo w/cad, [facility]. Tissue Density: The breast tissue is heterogeneously dense. This may lower the sensitivity of mammography. Findings: Analyzed By CAD. The pattern appears symmetrical and stable. Benign calcifications are present bilaterally. A core marker is within the left breast. No suspicious groups of microcalcifications, spiculated or lobular masses, architectural distortion or other secondary signs of malignancy are mammographically apparent. Overall Assessment: Benign, BI-RAD 2 Management: Screening Mammogram of both breasts in 1 year. A negative mammogram report should not preclude additional follow up of suspicious palpable abnormalities. Patient should continue monthly self breast exam. A clinical breast exam by your physician is recommended on an annual basis and results should be correlated with mammographic findings. Electronically signed and approved by: Robe Fofana D.O. Radiologis
== END | disposition home or self-care (01) ==
LOC: RADMAMWWP 09:47
PROVIDERS: ATTEND Family Medicine
DX: Z12.31 Encounter for screening mammogram for malignant neoplasm of breast (principal); Z78.0 Asymptomatic menopausal state; Z80.3 Family history of malignant neoplasm of breast
CPT/HCPCS: 77063; 77067

== ENCOUNTER → 2023-07-26 | Outpatient (CLI) | payer MEDICARE ==
[2023-07-26 16:40] LABS: ALT 17 U/L (8-44); AST 15 U/L (13-35); Albumin 4.5 g/dL (3.8-4.9); Alkaline Phosphatase 95 U/L (41-126); BUN/Creat Ratio 17.57 Ratio (12.00-20.00); Blood Urea Nitrogen 12.3 mg/dL (9.0-27.0); Calcium 10.1 mg/dL (8.7-10.3); Chloride 103 mmol/L (96-109); Globulin 2.5 g/dL (1.6-3.3); Glucose 92 mg/dL (70-110); Potassium 4.2 mmol/L (3.5-5.5); Sodium 141 mmol/L (135-145); Total Bilirubin 0.2 mg/dL (0.3-1.2)
== END | disposition home or self-care (01) ==
LOC: LABWHC1 12:36
PROVIDERS: ATTEND Internal Medicine Endocrinology, Diabetes & Metabolism
DX: M81.0 Age-related osteoporosis without current pathological fracture (principal)
CPT/HCPCS: 36415; 80053; 82306; 83970

== ENCOUNTER → 2023-09-20 | Outpatient (CLI) | payer MEDICARE ==
--- NOTE | 2023-09-20 19:42 | CTL ---
EXAMINATION TYPE: CT Low Dose Lung DATE OF EXAM ORDERED: 09/20/2023 COMPARISON: 06/29/2022 HISTORY: . Low Dose CT Lung Screening CT DLP: 70.[address] CTDI: 2.1 mGy IV CONTRAST USED: None. SCREENING VISIT: Follow-up TECHNIQUE: Low dose computed tomography scan was performed through the chest at 1 millimeter thick se ctions and reconstructed images in the coronal plane at [address] DIAGNOSTIC QUALITY: Satisfactory FINDINGS: LUNG NODULES: Pleural-based Right lower lobe posterior peripheral superior segment nodule now measur ing 7 mm, change from prior study seen best on image 120. Right middle lobe intrafissural lymph node along the minor fissure unchanged at 3 mm. Stable subpleural nodular density left upper lobe image 15 7 measuring 3.5 mm. No new nodules identified. LUNGS: COPD: Severity: Mild Fibrosis: Severity:None Lymph nodes: None Other findings: None RIGHT PLEURAL SPACE: Effusion: None Calcification: None Thickening: None Pneumothorax: None LEFT PLEURAL SPACE: Effusion: None Calcification: None Thickening: None Pneumothorax: None HEART: Heart Size: Mildly enlarged Coronary calcification: Mild Pericardial effusion: None OTHER FINDINGS: Upper abdomen: Hepatic cyst redemonstrated. Bony thorax: Degenerative changes Supraclavicular region: No significant abnormalityOther: No significant abnormalityI IMPRESSION: Benign FOLLOW UP CT CHEST RECOMMENDATION: Follow-up screening in one year CT LUNG RAD: LUNG RAD CATEGORY 2 benign appearance and/or behavior.
== END | disposition home or self-care (01) ==
LOC: RADCTMAIN 17:12
PROVIDERS: ATTEND Family Medicine
DX: Z12.2 Encounter for screening for malignant neoplasm of respiratory organs (principal); F17.210 Nicotine dependence, cigarettes, uncomplicated
CPT/HCPCS: 71271

== ENCOUNTER → 2023-10-04 | Outpatient (CLI) | payer MEDICARE ==
--- NOTE | 2023-10-04 12:36 | BD ---
EXAMINATION TYPE: Axial Bone Density DATE OF EXAM: 10/04/2023 CLINICAL HISTORY: 67 years old Female. ICD-10 CODE: M81.0 AGE-RELATED OSTEOPOROSIS W/O CURRENT PATHO LOGY Height: 61 Weight: 149 FRAX RISK QUESTIONS: Glucocorticoids (More than 3mos): no (Ex: prednisone, prednisolone, methylprednisolone, dexamethasone, and hydrocortisone). History of Fracture in Adulthood: yes Secondary Osteoporosis: yes 3. Menopause before 45: yes Current Tobacco Use: yes RISK FACTORS HISTORY OF: Surgery to Spine/Hip(right/left)/Wrist (right/left): no MEDICATIONS: Thyroid Medications: yes Which medication: Levothyroxine How Lon+ years EXAM MEASUREMENTS: Bone mineral densitometry was performed using the [employer] System. Bone mineral density as measured about the Lumbar spine is: ----- L1-L4(G/cm2): 0.922 T Score Values are as follows: ----- L1: -2.7 ----- L2: -2.8 ----- L3: -2.7 ----- L4: -1.0 ----- L1-L4: -2.2 Z Score Values are as follows: ----- L1: -1.2 ----- L2: -1.2 ----- L3: -1.2 ----- L4: 0.5 ----- L1-L4: -0.6 Bone mineral density baseline Bone mineral density about the R hip (g/cm2): 0.860 Bone mineral density about the L hip (g/cm2): 0.862 T Score values are as follows: -----R Neck: -2.0 -----L Neck: -2.0 -----R Total: -1.2 -----L Total: -1.2 Z Score values are as follows: -----R Neck: -0.5 -----L Neck: -0.5 -----R Total: 0.1 -----L Total: 0.1 Bone mineral density baseline FRAX%s: The graph provided illustrates a 11.8% chance for a major osteoporotic fx and a 3.1% chance f or the hips probability for fx in 10 years time. IMPRESSION: Osteopenia (T Score between -2.5 and -1). There is slightly increased risk of fracture and the patient may be considered for treatment. Re-Screen 2-5 years. NOTE: T-SCORE=SD OF THE YOUNG ADULT MEAN.
== END | disposition home or self-care (01) ==
LOC: RADBDWWP 11:12
PROVIDERS: ATTEND Family Medicine
DX: M81.0 Age-related osteoporosis without current pathological fracture (principal); M85.89 Other specified disorders of bone density and structure, multiple sites
CPT/HCPCS: 77080

== ENCOUNTER → 2024-01-16 | Outpatient (CLI) | payer MEDICARE ==
--- NOTE | 2024-01-18 20:39 | MM ---
Reason for Exam: Screening (asymptomatic). Last screening mammogram was performed 12 month(s) ago. Patient History: Menarche at age 16. First Full-Term at age 20. Left ovary removed at age 42. Right ovary removed at age 42. Hysterectomy at age 42. Postmenopausal. Estrogen for 3 years from age 36 until age 39. Hormonal Contraceptives for 20 years from age 21 until age 41. Cyst Aspiration on the Right side. Excisional Biopsy on the Right side. Excisional Biopsy on the Right side. Excisional Biopsy on the Right side. 08/06/2016, Benign Core Biopsy on the left side. Sister had breast cancer, age 50. Risk Values: Debbie 5 year model risk: 4.3%. NCI Lifetime model risk: 14.1%. Prior Study Comparison: 07/23/2016 Bilateral Diagnostic Mammogram, [facility]. 02/07/2017 Left Diagnostic Mammogram, [facility]. 01/29/2018 Bilateral Screening Mammogram, [facility]. 03/24/2019 Bilateral Screening Mammogram, [facility]. 11/25/2020 Bilateral Screening Mammogram, [facility]. 01/12/2022 Bilateral MG 3D screening mammo w/cad, [facility]. 01/14/2023 Bilateral MG 3D screening mammo w/cad, [facility]. Tissue Density: The breasts are heterogeneously dense, which may obscure small masses. Findings: Analyzed By CAD. Microclip left breast from prior biopsy. Benign bilateral oil cyst calcifications. There is no suspicious group of microcalcifications or new suspicious mass in either breast. Overall Assessment: Benign, BI-RAD 2 Management: Screening Mammogram of both breasts in 1 year. Further clinical management of right axillary pain. See note below in regards to patient's increased 5 year Debbie score. Patient should continue monthly self-breast exams. A clinical breast exam by your physician is recommended on an annual basis. This exam should not preclude additional follow-up of suspicious palpable abnormalities. Note on Debbie scores and lifetime risk: 1. A Debbie score greater than 3% is considered moderate risk. If this is the case, consider specialist referral to assess eligibility for a risk reducing agent. 2. If overall lifetime risk for the development of breast cancer is 20% or higher, the patient may qualify for future screening with alternating mammogram and breast MRI. Electronically signed and approved by: Mariann Santa M.D. Radiologist
== END | disposition home or self-care (01) ==
LOC: RADMAMWWP 11:13
PROVIDERS: ATTEND Family Medicine
DX: Z12.31 Encounter for screening mammogram for malignant neoplasm of breast (principal); Z80.3 Family history of malignant neoplasm of breast; Z78.0 Asymptomatic menopausal state
CPT/HCPCS: 77063; 77067

== ENCOUNTER → 2024-02-27 | Outpatient (CLI) | payer MEDICARE ==
--- NOTE | 2024-02-28 10:09 | US ---
EXAMINATION TYPE: US axilla RT DATE OF EXAM: 02/27/2024 COMPARISON: 10/08/2014 CLINICAL INDICATION: Female, 68 years old with history of R59.0 LOCALIZED ENLARGED LYMPH NODES; pain within right axilla for 1 month, no injury, no recent illness TECHNIQUE: Soft tissue axilla scan FINDINGS: Normal appearing soft tissue and lymph nodes within axilla, largest node = 1.1 x 0.9 x 0.6 cm IMPRESSION: No abnormal soft tissue mass or adenopathy in the right axilla
== END | disposition home or self-care (01) ==
LOC: RADUSWWP 16:00
PROVIDERS: ATTEND Family Medicine
DX: R59.0 Localized enlarged lymph nodes (principal)

== ENCOUNTER → 2024-03-23 | Outpatient (CLI) | payer MEDICARE ==
[2024-03-23 17:58] LABS: Chol/HDL Ratio 3.54 Ratio; Creatine Kinase 66 U/L (26-186); LDL Cholesterol,Calculated 112.7 mg/dL (0.0-131.0); VLDL Calculation 17.08 mg/dL (5.00-40.00)
[2024-03-23 17:59] LABS: ALT 13 U/L (8-44); AST 16 U/L (13-35); Albumin 4.4 g/dL (3.8-4.9); Albumin/Globulin Ratio 1.83 Ratio (1.60-3.17); Alkaline Phosphatase 107 U/L (41-126); BUN/Creat Ratio 14.86 Ratio (12.00-20.00); Blood Urea Nitrogen 10.4 mg/dL (9.0-27.0); Calcium 9.8 mg/dL (8.7-10.3); Carbon Dioxide 27.3 mmol/L (21.6-31.8); Chloride 104 mmol/L (96-109); Globulin 2.4 g/dL (1.6-3.3); Glucose 98 mg/dL (70-110); Potassium 4.4 mmol/L (3.5-5.5); Sodium 142 mmol/L (135-145); T4, Free (Free Thyroxine) 1.52 ng/dL (0.80-1.80); Total Bilirubin 0.3 mg/dL (0.3-1.2); Total Protein 6.8 g/dL (6.2-8.2)
[2024-03-23 22:05] LABS: Basophils # (A) 0.09 X 10*3/uL (0.00-0.10); Basophils % (A) 0.9 %; Eosinophils # (A) 0 X 10*3/uL (0.04-0.35); Eosinophils % (A) 0 %; HCT 42.2 % (37.2-46.3); HGB 13.9 g/dL (12.0-15.0); Lymphocytes % (A) 28.1 %; MCH 31.9 pg (27.0-32.0); MCHC 32.9 g/dL (32.0-37.0); MCV 96.8 FL (80.0-97.0); Mean Platelet Volume 9.8 FL (9.5-12.2); Monocytes # (A) 0.87 X 10*3/uL (0.20-1.00); Monocytes % (A) 8.4 %; NRBC Per 100 WBC 0 X 10*3/uL (0.00-0.01); Neutrophils # (A) 6.45 X 10*3/uL (1.80-7.70); Neutrophils % (A) 62.4 %; Platelet Count 402 X 10*3/uL (140-440); RBC 4.36 X 10*6/uL (4.10-5.20); RDW 14.6 % (11.5-14.5); WBC 10.33 X 10*3/uL (4.50-10.00)
== END | disposition home or self-care (01) ==
LOC: LABWHC1 10:12
PROVIDERS: ATTEND Nurse Practitioner Adult Health
DX: E03.9 Hypothyroidism, unspecified (principal); E78.5 Hyperlipidemia, unspecified; M81.0 Age-related osteoporosis without current pathological fracture
CPT/HCPCS: 36415; 80053; 80061; 82306; 82550; 83036; 84439; 84443; 85025

== ENCOUNTER → 2024-10-27 | Outpatient (CLI) | payer MEDICARE ==
--- NOTE | 2024-10-27 14:19 | CTL ---
EXAMINATION TYPE: CT Low Dose Lung DATE OF EXAM ORDERED: 10/27/2024 COMPARISON: 09/20/2023 CLINICAL INDICATION: Female, 68 years old with history of F17.210 nicotine dependence; PHH, Current s moker, 1/2 ppd x 43 years hx COPD, Lung cancer screening, History of Smoking/tobacco use. TECHNIQUE: Low dose computed tomography scan was performed through the chest at 1 mm thick sections a nd reconstructed images in multiple planes at 1 mm and [address] DLP: 77.[address] CTDI: 2.4 mGy Automated exposure control for dose reduction was used. CT DIAGNOSTIC QUALITY: Satisfactory Findings: There are mild emphysematous changes. There are 2 new groundglass opacities, one in the right upper lobe measuring approximately 8.6 mm an d the other in the left lower lobe measuring approximately 7 to 8 mm. There are a few scattered sub-3 mm nodules most of which are stable. There is a stable 7 to 8 mm pleural-based nodule in the right l ower lobe posteriorly There is no lung consolidation or abnormal interstitial density. There is no pleural effusion or pneumothorax. The great vessels and heart are normal in size. There is no mediastinal, hilar or axillary adenopathy. Limited scanning through the upper abdomen reveals stable hepatic cyst in the right lobe of the liver . There are no focal osseous lesions. IMPRESSION: 1. Lung RADS category 3, likely benign. 2 new small groundglass opacities in the right upper and lowe r lobes 3 month follow-up CT thorax suggested to confirm stability. 2. Mild emphysematous changes. [facility], , 10/27/2024 2:17 PM
== END | disposition home or self-care (01) ==
LOC: RADCTMAIN 12:47
PROVIDERS: ATTEND Family Medicine
DX: Z12.2 Encounter for screening for malignant neoplasm of respiratory organs (principal); J43.9 Emphysema, unspecified; F17.210 Nicotine dependence, cigarettes, uncomplicated; R91.8 Other nonspecific abnormal finding of lung field
CPT/HCPCS: 71271

== ENCOUNTER → 2024-11-21 | Outpatient (CLI) | payer MEDICARE ==
[2024-11-21 13:16] LABS: HCT 42.4 % (37.2-46.3); HGB 13.9 g/dL (12.0-15.0); MCHC 32.8 g/dL (32.0-37.0); MCV 97.7 FL (80.0-97.0); Mean Platelet Volume 9.1 FL (9.5-12.2); NRBC Per 100 WBC 0 X 10*3/uL (0.00-0.01); Platelet Count 421 X 10*3/uL (140-440); RBC 4.34 X 10*6/uL (4.10-5.20); RDW 14.4 % (11.5-14.5)
[2024-11-21 13:17] LABS: Basophils # (A) 0.11 X 10*3/uL (0.00-0.10); Basophils % (A) 1.2 %; Eosinophils # (A) 0 X 10*3/uL (0.04-0.35); Eosinophils % (A) 0 %; Lymphocytes # (A) 3.27 X 10*3/uL (0.90-5.00); Lymphocytes % (A) 35.9 %; Monocytes # (A) 1.03 X 10*3/uL (0.20-1.00); Monocytes % (A) 11.3 %; Neutrophils # (A) 4.67 X 10*3/uL (1.80-7.70); Neutrophils % (A) 51.4 %
[2024-11-21 13:58] LABS: ALT 13 U/L (8-44); AST 17 U/L (13-35); Albumin 4.3 g/dL (3.8-4.9); Albumin/Globulin Ratio 1.79 Ratio (1.60-3.17); Alkaline Phosphatase 102 U/L (41-126); BUN/Creat Ratio 13.12 Ratio (12.00-20.00); Blood Urea Nitrogen 10.5 mg/dL (9.0-27.0); Calcium 9.9 mg/dL (8.7-10.3); Carbon Dioxide 28.8 mmol/L (21.6-31.8); Chloride 105 mmol/L (96-109); Chol/HDL Ratio 3.26 Ratio; Creatine Kinase 72 U/L (26-186); Globulin 2.4 g/dL (1.6-3.3); Glucose 112 mg/dL (70-110); LDL Cholesterol,Calculated 98.5 mg/dL (0.0-131.0); Potassium 4.3 mmol/L (3.5-5.5); Sodium 144 mmol/L (135-145); T4, Free (Free Thyroxine) 1.52 ng/dL (0.80-1.80); Total Bilirubin 0.4 mg/dL (0.3-1.2); Total Protein 6.7 g/dL (6.2-8.2); VLDL Calculation 19.26 mg/dL (5.00-40.00)
== END | disposition home or self-care (01) ==
LOC: LABWHC1 10:18
PROVIDERS: ATTEND Family Medicine
DX: E03.9 Hypothyroidism, unspecified (principal); E78.5 Hyperlipidemia, unspecified
CPT/HCPCS: 36415; 80053; 80061; 82550; 83036; 84439; 84443; 85025

== ENCOUNTER → 2024-12-04 | Outpatient (CLI) | payer MEDICARE ==
--- NOTE | 2024-12-04 11:48 | US ---
EXAMINATION TYPE: US thyroid st tissue head/neck DATE OF EXAM: 12/04/2024 COMPARISON: US 2020 CLINICAL INDICATION: Female, 69 years old with history of R09.A0 FOREIGN BODY SENSATION, UNSPECIFIEDR 09.A0 FOREIGN BOD; Foreign body sensation in neck. Pt takes levothyroxine. TECHNIQUE: Grayscale and color Doppler imaging of the thyroid gland. FINDINGS: GLAND SIZE: Right Lobe: 4.6 x 1.3 x 1.4 cm Overall Parenchyma: heterogeneous Left Lobe: 4.2 x 1.1 x 1.3 cm Overall Parenchyma: heterogeneous Isthmus Thickness: 0.18 cm NODULES RIGHT: # of nodules measured on right: 0 LEFT: # of nodules measured on left: 1 1. 0.3 X 0.3 x 0.2 cm, mid mid, solid or almost completely solid, hyperechoic nodule, which is wide r than tall, with smooth margins. TR3 lesion. Prior size: 0.3 x 0.2 x 0.3 cm ISTHMUS: # of nodules measured in the isthmus: 0 Bilateral neck scanned. Anechoic area seen just inferior to submandibular gland slightly left of midline neck: 1.1 x 1.2 x 1.3 cm. Possible prominent lymph node. Consider short-term follow-up. Heterogeneous normal-sized thyroid redemonstrated. Stable tiny left-sided nodule. IMPRESSION: As above. Highest TI-RADS level nodule reported: 2017 ACR TI-RADS LEVEL: TI-RADS 3 - Mildly Suspicious: Follow if > 1.5 cm, FNA if > 2.5 cm TI-RADS assessment score and recommendation for follow-up based on appropriate scoring and treatment protocols. TR3: If nodule size is ? 2.5 cm, FNA is recommended. If nodule size is ? 1.5 cm, follow-up imaging at 1, 3, and 5 years is recommended. TR4: If nodule size is ? 1.5 cm, FNA is recommended. If nodule size is ? 1.0 cm, follow-up imaging at 1, 2, 3, and 5 years is recommended. TR5: If nodule size is ? 1.0 cm, FNA is recommended. If nodule size is ? 0.5 cm, annual follow-up for up to 5 years is recommended. [email or web address] [facility], , 12/04/2024 11:45 AM
== END | disposition home or self-care (01) ==
LOC: RADUSWWP 10:46
PROVIDERS: ATTEND Family Medicine
DX: R09.A0 Foreign body sensation, unspecified (principal)
CPT/HCPCS: 76536

== ENCOUNTER → 2025-01-11 | Outpatient (CLI) | payer MEDICARE ==
--- NOTE | 2025-01-11 14:51 | CT ---
EXAMINATION TYPE: CT chest wo con CT DLP: 403 mGycm, Automated exposure control for dose reduction was used. DATE OF EXAM: 01/11/2025 2:19 PM COMPARISON: CT low-dose lung 10/27/2024, 09/20/2023, 06/29/2022, CT chest 06/05/2021 CLINICAL INDICATION:Female, 69 years old with history of R91.8 OTHER NONSPECIFIC ABNORMAL FINDING OF LUNG F; PHH, multiple nodules in lung TECHNIQUE: Multiple axial images were obtained through the chest without IV contrast. Lack of IV or o ral contrast limits evaluation of solid and hollow organ viscera. . Coronal and sagittal reformats re viewed. FINDINGS: LUNGS/ PLEURA: Minimal biapical pleural-parenchymal scarring. Mild centrilobular emphysematous change s. Right lower lobe linear scarring and/or atelectasis. Several scattered pulmonary nodules/nodular opacities identified within the lungs. Examples include a peripheral right upper lobe 3 mm pulmonary nodule (series 4, image 15), anterior left upper lobe 1.9 mm pulmonary nodule which appears calcified (series 4, image 17), posterior right upper lobe 6.9 mm pulmonary nodular opacity (series 4, image 2 2), pleural-based right lower lobe 7.6 mm pulmonary nodule (series 4, image 29), right lower lobe 4.1 mm pulmonary nodule (series 4, image 30), and right anterior midlung 6.2 mm pulmonary nodule opacity (series 4, image 38). AIRWAY: Patent and unremarkable.. HEART: Size within normal limits. . No pericardial effusion. Minimal coronary artery calcifications. MEDIASTINUM: No gross evidence of adenopathy. VASCULATURE: No aortic aneurysm. Mild atherosclerotic calcification of the aorta and its branches. MUSCULOSKELETAL: No acute osseous abnormalities. Partial visualization of anterior cervical fusion de leon rdware. No aggressive osseous lesion. Minimal multilevel degenerative disc disease. SOFT TISSUES/LYMPH NODES: No axillary adenopathy. Few coarse calcifications within both breasts. LOWER NECK: No significant findings. UPPER ABDOMEN: Stable posterior right hepatic lobe simple appearing 3.5 cm cyst. Additional smaller l eft anterior hepatic lobe simple appearing cyst. Gallbladder is surgically absent. Stable extrahepati c biliary ductal dilatation likely related to post cholecystectomy physiology. IMPRESSION: 1. Stable pulmonary nodules from prior exam. No new or enlarging pulmonary nodules. Recommend follow- up CT chest in 12 months. 2. Mild emphysematous changes. [facility], , 01/11/2025 2:49 PM
== END | disposition home or self-care (01) ==
LOC: RADCTMAIN 13:36
PROVIDERS: ATTEND Family Medicine
DX: J43.2 Centrilobular emphysema (principal); R91.8 Other nonspecific abnormal finding of lung field
CPT/HCPCS: 71250

== ENCOUNTER → 2025-02-05 | Outpatient (CLI) | payer MEDICARE ==
--- NOTE | 2025-02-05 12:51 | US ---
EXAMINATION TYPE: US thyroid st tissue head/neck DATE OF EXAM: 02/05/2025 COMPARISON: NONE CLINICAL INDICATION: Female, 69 years old with history of K11.20 SIALOADENITIS, UNSPECIFIED; 12/04 TECHNIQUE: Real-time linear array sonography. FINDINGS: Multiple rounded hypoechoic lymph nodes seen left lateral neck Few hypoechoic areas within submandibular salivary glands 1. Previously measured = 1.5 x 0.8 x 0.9cm 2. New area = 0.9 x 0.2 x 0.6 cm IMPRESSION: 1. Small hypoechoic areas within the left parotid region may be lymph nodes. [facility], , 02/05/2025 12:49 PM
== END | disposition home or self-care (01) ==
LOC: RADUSWWP 12:26
PROVIDERS: ATTEND Family Medicine
DX: K11.20 Sialoadenitis, unspecified (principal)
CPT/HCPCS: 76536

== ENCOUNTER 2025-02-12 07:17 | Day surgery (SDC) | payer MEDICARE ==
[2025-02-10 15:55] VITALS: BMI 24.7
[~2025-02-12 07:17] MED LIST changes: -LACTATED RINGERS 1,000 ML IV SCH; +LIDOCAINE 1% (10MG/ML) FOR IV START INTRADERMA PRN
[2025-02-12 08:04] VITALS: RESP 16; TEMP 97.5
[2025-02-12] MEDS: IV FLUID CONTINUATION 1,000 ML IV ONE (08:04)
[2025-02-12] MEDS: LACTATED RINGERS 1,000 ML IV SCH (08:04)
[2025-02-12] MEDS ORDERED: PROPOFOL 10 MG/ML 20 ML VIAL IV ONE (08:36)
[2025-02-12] MEDS ORDERED: LIDOCAINE 2% (PF) 20 MG/ML 5 ML VIAL ONE (08:36)
--- NOTE | 2025-02-12 09:03 | P.PCN ---
Date of Procedure: 02/12/25 Procedure(s) Performed: Brief history: Patient is a pleasant 69-year-old white female scheduled for an elective upper endoscopy as well as colonoscopy as a part of evaluation of GERD and screening for prior history of colon polyp Procedure performed: Esophagogastroduodenoscopy with biopsy Colonoscopy with snare polypectomy Preoperative diagnosis: GERD Screening for prior history of colon polyps Anesthesia: MAC Procedure: After informed consent was obtained from the patient was brought into the endo scopy unit and IV sedation was administered by anesthesia under continuous monitoring. Initially upper endoscopy was done. The Olympus GF 160 video endoscope was inserted inserted into the mouth and esophagus intubated without any difficulty and was gradually advanced into the stomach and duodenum and carefully examined. The bulb and second part of the duodenum appeared normal. The scope was then withdrawn into the stomach adequately insufflated with air and upon careful examination the antrum and body, mild diffuse gastritis and biopsies were done from this area. Mucosa cardia and fundus appeared normal. The scope was then withdrawn into the esophagus. Small hiatal hernia noted. The GE junction was located at 40 cm to the incisors. It appeared regular with no erythema erosions or ulcerations. Rest of the esophagus appeared normal. Patient tolerated the procedure well. At this time the patient continued to remain sedation. Initial digital rectal examination was normal. Olympus CF 160 video colonoscope was then inserted into the rectum and gradually advanced to the cecum without any difficulty. Careful examination was performed as the scope was gradually being withdrawn. The prep was excellent. The cecum, ascending colon, transverse colon, descending colon appeared normal. The sigmoid colon there were 5 polyps measuring between 5 to 7 mm in size status post cold snare polypectomy/hot snare polypectomy. In the rectosigmoid colon there were 3 small sessile polyps removed by cold snare polypectomy. Scattered sigmoid diverticulosis seen. Rest of the, sigmoid colon and rectum appeared normal. Retroflexion was performed in the rectum and no lesions were noted. Patient tolerated the procedure well. Impression: 1. Upper endoscopy revealed diffuse antral gastritis and small hiatal hernia but no evidence of esophagitis or Canales's esophagus 2. Colonoscopy revealed 5 small sessile polyps measuring repeat 5 mm to 7 mm in size in the sigmoid colon status post polypectomy s 3 small sessile rectosigmoid polyps measuring between 3 to 4 mm in size in the rectosigmoid colon status post polypectomy Scattered sigmoid diverticulosis Recommendations: Findings of this examination were discussed with the patient as well as his family. He was advised to follow-up with the biopsy results. If the biopsy reveals adenoma she can have repeat colonoscopy in 3 years.
[2025-02-12 09:24] VITALS: BP 124/72; PULSE 72
== END 2025-02-12 10:02 | disposition home or self-care (01) ==
LOC: ORWHC2ENDO 07:17
PROVIDERS: ATTEND Internal Medicine Gastroenterology
DX: Z12.11 Encounter for screening for malignant neoplasm of colon (principal); D12.5 Benign neoplasm of sigmoid colon; K57.30 Diverticulosis of large intestine without perforation or abscess without bleeding; K63.5 Polyp of colon; K44.9 Diaphragmatic hernia without obstruction or gangrene; K31.89 Other diseases of stomach and duodenum; K29.50 Unspecified chronic gastritis without bleeding; K21.9 Gastro-esophageal reflux disease without esophagitis; Z86.0100 Personal history of colon polyps, unspecified; J44.9 Chronic obstructive pulmonary disease, unspecified; E78.5 Hyperlipidemia, unspecified; I10 Essential (primary) hypertension; G47.33 Obstructive sleep apnea (adult) (pediatric); E07.9 Disorder of thyroid, unspecified; I25.2 Old myocardial infarction; F17.210 Nicotine dependence, cigarettes, uncomplicated; Z79.899 Other long term (current) drug therapy; Z79.890 Hormone replacement therapy; Z88.2 Allergy status to sulfonamides; Z88.1 Allergy status to other antibiotic agents; Z88.0 Allergy status to penicillin
CPT/HCPCS: 45380; 45385; 43239; J2704; J2003; 88305